=== PATIENT | female | born 2000 | race Caucasian/White ===

== ENCOUNTER → 2021-10-14 | Outpatient (CLI) | payer BC, SELFPAY | END | disposition home or self-care (01) | LOC: LAB 15:48 | PROVIDERS: PCP Pediatrics; Referring Provider Otolaryngology; Visit Provider Otolaryngology | DX: J02.9 Acute pharyngitis, unspecified (principal) | CPT/HCPCS: 87070 ==

== ENCOUNTER 2022-05-15 12:30 | Outpatient (RCR) | payer BC, SELFPAY ==
--- NOTE | 2022-03-29 09:46 | HP.PTEVAL_ITS ---
Patient's Visit Information RICKI ELENA is a 21 year old F referred to Physical Therapy by Dr. Peewee Goetz DPM with a diagnosis of B achilles tendonitis. Date of Evaluation: 03/29/22 Physical Therapist: Mauro Hess DPT, OCS, CSCS - Visit Plan Frequency: 3x /Week Duration: 4-6 Weeks Plan: 3x/week for 4-6 weeks to start for. 1. rollout and stretch gastroc and soleus B. 2. US nonthermal B medial insertion of achilles. 3. progressive proprioception and strength of B feet and anklles. Pt is to consider heel lift(which she may have at home and OR orthotics(vasyli recommended for her today with HO)) - Subjective B achilles tendonitis pain in achilles. has heel spurs on bohth sides via x rays. Hurting for months for no apparent reason. Works on feet all day working at [employer] in [employer] for 4 years. Worse after work 6 days week. Was put on meds for OA a week ago and it has not helped. Has taken away some redness at heel. Doing stretches including ABCs, inv/ev, and heel raises with eccentric lowering 5-10x. Work is normal but it just hurts. Activities are normal just painful. Basic ADLs are I but sits down when painful. - Pain R achilles Pain Intensity (Out of 10): 2 Pain Intensity Range: 2, 4 L achilles Pain Intensity (Out of 10): 5 Pain Intensity Range: 5, 8 Comment: worse after work and walking - Objective Walks slowly with short steps buyt no antalgia into PT. I with gait and transfers. Pes planus B feet leading to mild hindfoot valgus. Tender to touch medial achilles insertion B L>R. Mild tightness into DF at 2 degrees DF B knees straight and 3 knees bent. Able to heel raise with mild pain L. 4/5 strength B inversiona dn eversion, 4+ in PF, 4- in DF. Metatarsal movement WFL, big to movement and ROM WFL, strength at 4- flexion and extension without pain. - Balance/Special Test Scores Lower Extremity Functional Score: 56 - Goals Goal 1:: Pain 0-1/10 at alltimes and 75% improved overall Goal Time Frame: 4-6 Weeks Goal 2:: Patient I in management strategies for her achilles pain Goal Time Frame: 4-6 Weeks Goal 3:: LEFS 65 Goal Time Frame: 4-6 Weeks Goal 4:: Work without increased pain Goal Time Frame: 4-6 Weeks - Rehabilitation Potential Physical Therapy Diagnosis: B achilles tendonitis. Rehabilitation Potential: Good - Anticipated Interventions Patient/Client Instruction: Educate patient on: Condition, Plan of Care For the Purpose of:: To decrease pain, To increase ROM, To improve muscle performance and motor function, To increase tolerance to activity/condition/position, To improve ability of physical actions for home/community/work/leisure, To improve gait and locomotor functions Therapeutic Exercise to Include: Strength training, Balance training, Flexibilty training, Passive ROM, Active ROM For the Purpose of:: To decrease pain, To increase ROM, To improve ability to perform ADL's, To increase tolerance to activity/condition/position, To improve ability of physical actions for home/community/work/leisure, To improve gait and locomotor functions Manual Therapy Techniques to Include: Mobilization, Passive ROM, Soft tissue mobilization For the Purpose of:: To decrease pain, To increase ROM Orthotics: Shoe insert Comment: heel lift For the Purpose of:: To decrease pain Ultrasound (thermal/non thermal): Yes - nonthermal B achiilles insertion For the Purpose of:: To decrease pain, To decrease swelling/inflammation Thank you for the opportunity to evaluate your patient. For Medicare and Medicare HMO plans, please review the plan of care and approve it. It will need to be FAXED BACK to us at [phone] for Medicare purposes. For Medicare only, by signing this I certify the plan of care. Please let me know if there are questions or concerns regarding this plan of care. Physician Signature: Date:
--- NOTE | 2022-08-07 09:02 | HP.PT.NRP ---
RICKI ELENA was seen in my office for initial evaluation on 03/29/22. The following Plan of Care was established for this patient: Initial Frequency: 3x /Week Initial Duration: 4-6 Weeks Patient/Client Instruction: Educate patient on: Condition, Plan of Care For the Purpose of:: To decrease pain, To increase ROM, To improve muscle performance and motor function, To increase tolerance to activity/condition/position, To improve ability of physical actions for home/community/work/leisure, To improve gait and locomotor functions Therapeutic Exercise to Include: Strength training, Balance training, Flexibilty training, Passive ROM, Active ROM For the Purpose of:: To decrease pain, To increase ROM, To improve ability to perform ADL's, To increase tolerance to activity/condition/position, To improve ability of physical actions for home/community/work/leisure, To improve gait and locomotor functions Manual Therapy Techniques to Include: Mobilization, Passive ROM, Soft tissue mobilization For the Purpose of:: To decrease pain, To increase ROM Orthotics: Shoe insert Comment: heel lift For the Purpose of:: To decrease pain Ultrasound (thermal/non thermal): Yes - nonthermal B achiilles insertion For the Purpose of:: To decrease pain, To decrease swelling/inflammation This patient was last seen in our office 05/15/22. Pertinent comments regarding their Physical therapy will appear below: Pt seen 12 visits and was at least 85% improved. She no showed for her last scheduled visit. at this point, it has been over two months and I will discontinue due to nonattendance. At this point I will be discontinuing this patient from physical therapy. I would be happy to see this patient again in the future if found appropriate by the physician. Thank you! Mauro Hess, DPT, OCS, CSCS Balance/Gait/Functional tests - Balance/Special Test Scores Lower Extremity Functional Score: 55
== END 2022-05-15 19:00 | disposition home or self-care (01) ==
LOC: PT 12:30
PROVIDERS: PCP Pediatrics; Referring Provider Podiatrist; Visit Provider Podiatrist
DX: M76.61 Achilles tendinitis, right leg (principal); M76.62 Achilles tendinitis, left leg
CPT/HCPCS: 97035; 97110; 97161; 97530

== ENCOUNTER 2024-08-04 00:38 | Emergency (ER) | payer OTHER, SELFPAY ==
[2024-08-04 00:39] VITALS: BP 144/72; PULSE 81; RESP 18; TEMP 36.9; O2SAT 98; BMI 44.3
--- NOTE | 2024-08-04 00:46 | EDS_ITS ---
HPI History of Present Illness Chief Complaint[facility]ations ?Medication ?Instructions ?Recorded ?Last Taken ?Type NK 08/04/24 Unknown History Allergy/AdvReac Type Severity Reaction Status Date / Time latex Allergy Rash Verified 08/04/24 00:47 Social History Smoking Status: Never smoker alcohol intake: never EXAM Physical Exam Const Vital Signs: 08/04/24 00:39 Temperature 98.4 F Temperature Source Oral Pulse Rate 81 Respiratory Rate 18 Blood Pressure 144/72 H Blood Pressure Mean 96 Pulse Ox 98 Oxygen Delivery Method Room Air [facility] MDM Narrative Medical decision making narrative: HISTORY OF PRESENT ILLNESS: 24-year-old [id number] female presents for concern of right head injury. She states she had her hand smashed at work 2 days ago. REVIEW OF SYSTEMS: Pertinent positives: Hand pain Pertinent negatives: Loss of sensation PHYSICAL EXAM: Nursing triage notes reviewed, Vital signs reviewed Constitutional: please see mdm Extremities: No edema, bruise noted to the dorsal surface of right hand along the third metacarpal. This area is not significantly tender resolves deformity open fracture noted Neuro: Intact 5/5 strength with ok sign (median), intact finger abduction (ulnar) intact wrist extension (radial n). Intact sensation in the radial, ulnar, and median nerve distributions. Skin: Bruising noted to dorsum of the right hand MEDICAL DECISION MAKING: Chief Complaint: Hand pain MDM Narrative: The patient was initially hemodynamically stable, afebrile and nontoxic- appearing. Exam with a neurovascular intact right upper extremity. I considered the following differential diagnosis: Fracture, dislocation, contusion I obtained an x-ray of the right hand to further elucidate the etiology of patient's complaints ALL IMAGES (IF OBTAINED) HAVE BEEN PERSONALLY REVIEWED AND INTERPRETED BY MYSELF. X-ray of the right hand was read reviewed personally by myself and showed no acute fracture or dislocation. Radiologist agrees mitral rotation. The patient is likely suffering from a head contusion. Tylenol ibuprofen, ice recommended. Workmen's Compensation paperwork filled out. Return to work precautions were discussed The patient and/or family, caregivers express understanding. The patient and/or family, caregivers agrees with the plan. Shared decision making: I will have a discussion with the patient and or visitors regarding risk/benefits of further testing or admission. They will be made aware of of the risk/benefits inherent in this decision they will be given the opportunity to voice understanding. Total critical care time today provided was at least 0 minutes. This excludes separately billable procedures. Critical care time (if documented) is secondary to the patient having high probability of clinically significant/life threatening deterioration in the patient's condition which required my urgent intervention. Impression: 1. Hand contusion Dispo: Discharge home This note was generated with [employer] dictation software. It may contain incorrect words, spelling, and punctuation that were not noted in review of the chart prior to signing. Discharge Plan Triage Chief Complaint: Upper Extremity Injury ED Provider: Sagar Talbot Dx/Rx/DC Orders Clinical Impression: Contusion of hand Instructions: Bone Contusion Prescriptions: No Action NK Stand Alone Forms: ED Work / School Excuse Primary Care Provider: Care Physician,No Primary Referrals: Danii Medina MD [Non-Staff] - Activity Restrictions/Additional Instructions: Thank you for trusting us with your care today! The x-ray of your hand was negative for bony injury including fractures (ie breaks) or dislocations. Please take Tylenol (2 pills, 650 mg), ibuprofen (2 pills, 400 mg) every 6 hours as needed for pain and fever control. Please return to the emergency department if your symptoms change or worsen. Please follow with your primary care physician for further outpatient evaluation and management. Print Language: Comoran Disposition Disposition: Home, Self Care
--- NOTE | 2024-08-04 00:47 | RAD_ITS ---
PROCEDURE: HAND MIN 3 VIEWS REASON FOR EXAM: Hand pain TECHNIQUE: 3 view(s) of the right hand COMPARISON: None. FINDINGS: No fracture or dislocation. The joint spaces appear within limits. No radiopaque foreign body. RAD/Hand Min 3 Views IMPRESSION: No fracture or dislocation. Reading Location: [id number]
== END 2024-08-04 01:30 | disposition home or self-care (01) ==
PROVIDERS: Emergency Provider Emergency Medicine; Visit Provider Emergency Medicine
DX: S60.221A Contusion of right hand, initial encounter (principal); X58.XXXA Exposure to other specified factors, initial encounter
CPT/HCPCS: 73130; 99282